=== PATIENT | female | born 1950 | race Caucasian/White ===

== ENCOUNTER → 2018-05-28 | Day surgery (SDC) | payer OTHER ==
[~2018-05-28] VITALS: Ht 165.1 cm; Wt 56.7 kg
[~2018-05-28] MED LIST: ADVIL200 M1 PO; CLARITIN10 M1 PO; HYDROCHLOROTH12.5 M3 PO; PEPCID20 M1 PO; VITAMIN B-121000 MC3 PO; VITAMIN D1000 UNIT PO
--- NOTE | 2018-05-31 13:38 | Operative Report ---
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 We used the CT scan as a guide this was a deep mass arising from behind the upper portion of the sternocleidomastoid muscle we aimed an incision within the skin lines overlying this palpable mass it was oblique submandibular laterally after injecting local anesthetic a 4 cm incision was made with a 15 blade and deepened with cautery through the platysma and then we identified the border of the sternal cleidomastoid muscle and stayed close to it dissecting deeper to get to the lateral portion of this mass which was white. This was bluntly dissected circumferentially paying care to see if there was a deeper extension tracking but there wasn't it seemed completely contained and encapsulated inferiorly there was a portion of lymph node either part of it, or just attached, this was included with the specimen care was taken also to avoid dissecting beyond the capsule of this oval mass, in the interest of surrounding nerves and vessels. This did measure proximally 4 cm long which correlated with the CT findings. Again there was no obvious duct or tract emanating from it. The areas and then inspected for hemostasis and closed back up in layers using 3-0 Vicryl sutures deep for the platysma followed by running subcuticular 40 for the skin itself followed by Mastisol Steri-Strips Telfa and Tegaderm. EBL minimal lap and sponge counts correct wound expectancy clean IV fluids crystalloid complications none patient tolerated the procedure well was awakened and returned to recovery room in satisfactory condition, where she was able to smile relatively symmetrically a tiny lag on the left which I attributed to local anesthetic and local manipulation should be transient.
== END ==
LOC: STS 02:33
DX: Q18.0 Sinus, fistula and cyst of branchial cleft (principal); I10 Essential (primary) hypertension; G54.0 Brachial plexus disorders
CPT/HCPCS: 88305; J0131; J2250